=== PATIENT | female | born 1945 | race Caucasian/White ===

== ENCOUNTER → 2019-07-08 | Outpatient (CLI) | payer MEDICARE ==
[2017-09-14 14:35] VITALS: BP 109/56
[~2019-07-08] MED LIST: ASPI325T8 PO; Aspirin PO; DIPH1TAB PO; IBUP-1027 PO; LEVO125T5 PO; LEVO50TA5 PO; LISI-338 PO; METO25TA4 PO; NITR0.4T22 SL; NITR0.4T24 SL; PARO40TA3 PO; PARO40TA61 PO; PRAS10TA9 PO; PROC10TA57 PO; SIMV20TA18 PO; ZOLP10TA4 PO
--- NOTE | 2019-07-08 11:33 | CARD ---
MR#: [id number] Date of Study: 07/08/2019 Ordering Physician: MILAGROS THOMPSON, Referring Physician: MILAGROS THOMPSON, Tech: Roberta Meyers APPROVED REPORT EXAM: Two-dimensional and M-mode echocardiogram with Doppler and color Doppler. Other Information Quality : AverageHR: 73bpm Technically limited study due to smoking. INDICATION Cardiac Disease: CAD Prior VA RISK FACTORS Hypertension Hyperlipidemia Smoking 2D DIMENSIONS Left Atrium(2D)3.9 (1.6-4.0cm)IVSd1.0 (0.7-1.1cm) Aortic Root(2D)3.1 (2.0-3.7cm)LVDd5.7 (3.9-5.9cm) LVOT Diameter2.0 (1.8-2.4cm)PWd1.0 (0.7-1.1cm) LVDs3.2 (2.5-4.0cm)FS (%) 43.3 % SV116.9 mlLVEF(%)73.7 (>50%) Aortic Valve AoV Peak Rajan.140.6cm/sAoV VTI28.9cm AO Peak GR.7.9mmHgLVOT Peak Rajan.109.5cm/s LVOT VTI 22.50cmAO Mean GR.4mmHg KIANNA (VMAX)1.27ir8CJL (VTI)2.38cm2 Mitral Valve MV E Cvscvqrm11.4cm/sMV DECEL FHUF997hw MV A Ocenfjre33.9cm/sMV WFT73ze E/A Ratio1.0MVA (PHT)4.43cm2 TDI E/Lateral E'15.6E/Medial E'17.0 Pulmonary Valve PV Peak Dnkvrzzw24.4cm/sPV Peak Grad.2mmHg Tricuspid Valve TR P. Jbapgepm858hr/sTR Peak Gr.28mmHg Pulmonary Vein S1 Zludswoe63.1cm/sD2 Dzylydkw51.4cm/s PVa nqcvayeg595sxbh LEFT VENTRICLE The left ventricle is normal size. There is borderline concentric left ventricular hypertrophy. The l eft ventricular systolic function is normal. The Ejection Fraction is 55-60%. There is normal LV segm ental wall motion. Transmitral Doppler flow pattern is Grade II-pseudonormal filling dynamics. RIGHT VENTRICLE The right ventricle is normal size. There is normal right ventricular wall thickness. The right ventr icular systolic function is normal. ATRIA The left atrium size is normal. The right atrium size is normal. The interatrial septum is intact wit h no evidence for an atrial septal defect or patent foramen ovale as noted on 2-D or Doppler imaging. AORTIC VALVE The aortic valve is thickened but opens well. Doppler and Color Flow revealed no significant aortic r egurgitation. There is no significant aortic valvular stenosis. MITRAL VALVE The mitral valve is normal in structure and function. There is no evidence of mitral valve prolapse. There is no mitral valve stenosis. Doppler and Color-flow revealed trace to mild mitral regurgitation . TRICUSPID VALVE The tricuspid valve is normal in structure and function. Doppler and Color Flow revealed trace tricus pid regurgitation with an estimated PAP of 34 mmHg. There is no tricuspid valve stenosis. PULMONIC VALVE The pulmonic valve is not well visualized. Doppler and Color Flow revealed no pulmonic valvular regur gitation. GREAT VESSELS The aortic root is normal in size. The IVC is normal in size and collapses >50% with inspiration. PERICARDIAL EFFUSION There is no evidence of significant pericardial effusion. Critical Notification Critical Value: No <Conclusion> The left ventricular systolic function is normal. The Ejection Fraction is 55-60%. There is normal LV segmental wall motion. Trace to mild mitral regurgitation. Trace tricuspid regurgitation with an estimated PAP of 34 mmHg. There is no evidence of significant pericardial effusion. Signed by : Sourav Rincon, Electronically Approved : 07/08/2019 11:33:06
== END | disposition home or self-care (01) ==
LOC: ECHO 09:41
PROVIDERS: ATTEND Internal Medicine Cardiovascular Disease
DX: I34.0 Nonrheumatic mitral (valve) insufficiency (principal); I21.3 ST elevation (STEMI) myocardial infarction of unspecified site
CPT/HCPCS: 93306

== ENCOUNTER 2019-09-24 19:34 | Emergency (ER) | payer MEDICARE ==
[~2019-09-24] VITALS: Ht 165.1 cm; Wt 79.4 kg
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
[2019-09-24 19:58] LABS: BASO # 0.1 x10^3/uL (0.0-0.2); BASO % 1 % (0-3); EOS % 1 % (0-3); HEMATOCRIT 37.1 % (36.0-47.0); HEMOGLOBIN 12.4 g/dL (12.0-15.5); LYMPH # 0.9 x10^3/uL (1.0-4.8); LYMPH % 11 % (24-48); MEAN CORPUSCULAR HEMOGLOBIN 34 pg (25-35); MEAN CORPUSCULAR HGB CONC 34 g/dL (31-37); MEAN CORPUSCULAR VOLUME 101 fL (79-100); MONO % 12 % (0-9); NEUT # 6.1 x10^3/uL (1.8-7.7); NEUT % 76 % (31-73); PLATELET COUNT 199 x10^3/uL (140-400); RED BLOOD COUNT 3.68 x10^6/uL (3.50-5.40); RED CELL DISTRIBUTION WIDTH 14.4 % (11.5-14.5); WHITE BLOOD COUNT 8.1 x10^3/uL (4.0-11.0)
[2019-09-24 20:08] LABS: CALCIUM 8.9 mg/dL (8.5-10.1); CREATININE 1.1 mg/dL (0.6-1.0); GFR 48.6
[2019-09-24 20:13] LABS: ALBUMIN 3.8 g/dL (3.4-5.0); ALBUMIN/GLOBULIN RATIO 1.2 (1.0-1.7); TOTAL BILIRUBIN 0.3 mg/dL (0.2-1.0)
--- NOTE | 2019-09-24 20:22 | RAD ---
EXAM: AP View of the chest DATE: 09/24/2019 7:36 PM INDICATION: Shortness of breath COMPARISON: No Prior FINDINGS/ IMPRESSION: The heart is not enlarged. Mediastinal and hilar contours are normal. No focal parenchymal airspace opacity. Emphysematous changes are seen. Calcified granuloma left lung base. No pleural effusion or pneumothorax. Electronically signed by: Ayo Ware MD (09/24/2019 8:19 PM) [facility]
[2019-09-24 20:54] VITALS: BP 103/71
--- NOTE | 2019-09-25 16:14 | EKG ---
[facility] [address] [place] [address] Test Date: 2019-09-24 Test Time: 19:54:00 Pat Name: JAYCEE BUSCH Department: Room: Gender: F Retail Equipment Associate: : 1945 Requested By: KIMBERLY SRIVASTAVA Order Number: [id number] Reading MD: Measurements Intervals [place] Rate: 74 P: 56 MO: 150 QRS: 48 QRSD: 104 T: -41 QT: 368 QTc: 409 Interpretive Statements SINUS RHYTHM ATRIAL PREMATURE COMPLEX(ES) ST & T ABNORMALITY, CONSIDER INFEROLATERAL ISCHEMIA OR LEFT VENTRICULAR STRAIN ABNORMAL ECG RI6.01 No previous ECG available for comparison
== END 2019-09-24 21:07 | disposition home or self-care (01) ==
LOC: ER 19:34
DX: R06.02 Shortness of breath (principal); E78.5 Hyperlipidemia, unspecified; K21.9 Gastro-esophageal reflux disease without esophagitis; E78.00 Pure hypercholesterolemia, unspecified; I11.9 Hypertensive heart disease without heart failure; E03.9 Hypothyroidism, unspecified; Z95.5 Presence of coronary angioplasty implant and graft; X00.1XXA Exposure to smoke in uncontrolled fire in building or structure, initial encounter
CPT/HCPCS: 36415; 71045; 80053; 83880; 84484; 85025; 93005; 99285-25

== ENCOUNTER 2020-10-05 10:27 | Emergency (ER) | payer MEDICARE ==
[~2020-10-05] VITALS: Ht 165.1 cm; Wt 76.2 kg
[~2020-10-05 10:27] MED LIST changes: -LISI-338 PO; +LISI-517 PO
[2020-10-05 11:20] LABS: BASO # 0.1 x10^3/uL (0.0-0.2); BASO % 1 % (0-3); EOS % 1 % (0-3); HEMATOCRIT 38.1 % (36.0-47.0); HEMOGLOBIN 12.8 g/dL (12.0-15.5); LYMPH # 1.2 x10^3/uL (1.0-4.8); LYMPH % 13 % (24-48); MEAN CORPUSCULAR HEMOGLOBIN 34 pg (25-35); MEAN CORPUSCULAR HGB CONC 34 g/dL (31-37); MEAN CORPUSCULAR VOLUME 102 fL (79-100); MONO # 0.9 x10^3/uL (0.0-1.1); MONO % 10 % (0-9); NEUT # 6.9 x10^3/uL (1.8-7.7); NEUT % 76 % (31-73); PLATELET COUNT 234 x10^3/uL (140-400); RED BLOOD COUNT 3.72 x10^6/uL (3.50-5.40); RED CELL DISTRIBUTION WIDTH 14.1 % (11.5-14.5); WHITE BLOOD COUNT 9.1 x10^3/uL (4.0-11.0)
[2020-10-05 11:27] LABS: CALCIUM 9.1 mg/dL (8.5-10.1); CREATININE 1.2 mg/dL (0.6-1.0); GFR 43.8; POTASSIUM 3.7 mmol/L (3.5-5.1)
[2020-10-05 11:31] LABS: ALBUMIN 3.7 g/dL (3.4-5.0); MAGNESIUM 1.8 mg/dL (1.8-2.4); TOTAL BILIRUBIN 0.5 mg/dL (0.2-1.0); TOTAL PROTEIN 7.4 g/dL (6.4-8.2)
[2020-10-05 11:40] LABS: PROTHROMBIN TIME PATIENT 12.5 SEC (11.7-14.0)
--- NOTE | 2020-10-05 12:04 | RAD ---
EXAM: Chest, single view. HISTORY: Vision changes. Weakness. Fatigue. COMPARISON: 09/24/2019 FINDINGS: A frontal view of the chest is obtained. There is no infiltrate, pleural effusion or pneumo thorax. There is suspected bilateral infrahilar atelectasis or scarring. There is a stable cardiac si lhouette. There are calcified granulomas. Lucency along the left lateral thorax due to overlying soft tissue artifact. IMPRESSION: No acute pulmonary finding. Electronically signed by: Cristal Cam MD (10/05/2020 12:01 PM) [id number]
--- NOTE | 2020-10-05 12:06 | RAD ---
EXAM: Head CT without contrast. HISTORY: Vision changes. TECHNIQUE: Computed tomographic images of the head were obtained without contrast. *One or more of the following individualized dose reduction techniques were utilized for this examina tion: 1. Automated exposure control. 2. Adjustment of the mA and/or kV according to patient size. 3. Use of iterative reconstruction technique. COMPARISON: None. FINDINGS: There is no acute or subacute extra-axial or intraparenchymal hemorrhage. There is no mass effect or midline shift. There is no hydrocephalus. There are areas of decreased attenuation within the cerebral white matter, nonspecific and likely rel ated to chronic small vessel disease. There is cerebral volume loss. There is minimal fluid within mastoid air cells. There is evidence of lens surgery. The visualized paranasal sinuses are clear. There is no calvarial lesion. IMPRESSION: 1. Bilateral cerebral white matter changes, likely due to chronic small vessel disease. 2. Cerebral volume loss. 3. Note is made that MRI is more sensitive for acute infarction. Electronically signed by: Cristal Cam MD (10/05/2020 12:03 PM) [id number]
[2020-10-05 14:52] LABS: BILIRUBIN,URINE NEGATIVE (NEG); CLARITY,URINE CLEAR; COLOR,URINE YELLOW; NITRITE,URINE NEGATIVE (NEG); PH,URINE 5.5 (<5.0-8.0); PROTEIN,URINE NEGATIVE (NEG-TRACE); UROBILINOGEN,URINE 0.2 mg/dL (0.2 mg/dL)
[2020-10-05 14:59] LABS: BARBITURATES NEG (NEG); BENZODIAZEPINES NEG (NEG); CANNABINOIDS NEG (NEG); COCAINE NEG (NEG); METHADONE NEG (NEG); OPIATES NEG (NEG); PHENCYCLIDINE NEG (NEG)
[2020-10-05 15:02] VITALS: BP 180/80
[2020-10-05 15:06] LABS: AMPHETAMINE/METHAMPHETAMINE NEG (NEG)
[2020-10-05 15:09] LABS: BACTERIA,URINE MANY /HPF (0-FEW); RBC,URINE OCC /HPF (0-2)
--- NOTE | 2020-10-05 15:35 | PHYS DOC ---
Past Medical History Past Medical History: CAD, GERD, High Cholesterol, Heart Disease, Hypertension, Hypothyroid, Other Additional Past Medical Histor: INSOMNIA Past Surgical History: Hysterectomy, Other Additional Past Surgical Histo: CARDIAC STENTS X 5 Smoking Status: Current Every Day Smoker Additional Information: 1 ppd Alcohol Use: None Drug Use: None General Adult EDM: Chief Complaint: BLURRED/DOUBLE VISION HPI: HPI: Patient is a 75 year old female with history of hypertension, high cholesterol, CAD, among other illnesses who presents to the ED today complaining of double vision to the left eye that has been going on for several years. She states today she went to the eye doctor because she thought it was worse and the eye doctor sent her to the ED. She states the eye doctor told her there is nothing wrong with her eyes she needs to be checked to make sure she does not have any stroke. Patient appears to have trouble finding words. She states this has been going on for a month or so. She states she grinds her teeth and this has been going on for several months. She states she has been tired lately and not be able to keep up with her normal house routine but states this has been going on since 2017 after the and she lost interest in life. She states with Covid and the passing no one comes to her house so she stopped caring about the house. Denies any suicidal or homicidal ideations Review of Systems: Review of Systems: Constitutional: Reports generalized weakness. Denies fever or chills. [] Eyes: Reports double vision to the left eye denies change in visual acuity. [] HENT: Denies nasal congestion or sore throat. [] Respiratory: Denies cough or shortness of breath. [] Cardiovascular: Denies chest pain or edema. [] GI: Denies abdominal pain, nausea, vomiting, bloody stools or diarrhea. [] : Denies dysuria. [] Musculoskeletal: Denies back pain or joint pain. [] Integument: Denies rash. [] Neurologic: Reports trouble finding words. Denies headache, focal weakness or sensory changes. [] Psychiatric: Reports loss of interest in personal life Heart Score: Risk Factors: Risk Factors: DM, Current or recent (<one month) smoker, HTN, HLP, family hist ory of CAD, obesity. Risk Scores: Score 0 - 3: 2.5% MACE over next 6 weeks - Discharge Home Score 4 - 6: 20.3% MACE over next 6 weeks - Admit for Clinical Observation Score 7 - 10: 72.7% MACE over next 6 weeks - Early Invasive Strategies Allergies: Allergies: Allergies Coded Allergies Type Severity Reaction Last Updated Verified No Known Drug Allergies 10/05/20 No Physical Exam: PE: Constitutional: Well developed, well nourished, no acute distress, non-toxic appearance. [] HENT: Normocephalic, atraumatic, bilateral external ears normal, oropharynx moist, no oral exudates, nose normal. [] Eyes: PERRLA, EOMI, conjunctiva normal, no discharge. [] Neck: Normal range of motion, no tenderness, supple, no stridor. [] Cardiovascular:Heart rate regular rhythm, no murmur [] Lungs & Thorax: Bilateral breath sounds clear to auscultation [] Abdomen: Bowel sounds normal, soft, no tenderness, no masses, no pulsatile masses. [] Skin: Warm, dry, no erythema, no rash. [] Back: No tenderness, no CVA tenderness. [] Extremities: No tenderness, no cyanosis, no clubbing, ROM intact, no edema. [] Neurologic: Alert and oriented X 3, normal motor function, normal sensory function, no focal deficits noted. Cranial nerves II through XII intact Psychologic: Affect normal, judgement normal, mood normal. [] Current Patient Data: Labs: Laboratory Tests Test 10/05/20 10:50 10/05/20 11:01 10/05/20 14:43 White Blood Count 9.1 x10^3/uL (4.0-11.0) Red Blood Count 3.72 x10^6/uL (3.50-5.40) Hemoglobin 12.8 g/dL (12.0-15.5) Hematocrit 38.1 % (36.0-47.0) Mean Corpuscular Volume 102 fL (79-100) H Mean Corpuscular Hemoglobin 34 pg (25-35) Mean Corpuscular Hemoglobin Concent 34 g/dL (31-37) Red Cell Distribution Width 14.1 % (11.5-14.5) Platelet Count 234 x10^3/uL (140-400) Neutrophils (%) (Auto) 76 % (31-73) H Lymphocytes (%) (Auto) 13 % (24-48) L Monocytes (%) (Auto) 10 % (0-9) H Eosinophils (%) (Auto) 1 % (0-3) Basophils (%) (Auto) 1 % (0-3) Neutrophils # (Auto) 6.9 x10^3/uL (1.8-7.7) Lymphocytes # (Auto) 1.2 x10^3/uL (1.0-4.8) Monocytes # (Auto) 0.9 x10^3/uL (0.0-1.1) Eosinophils # (Auto) 0.0 x10^3/uL (0.0-0.7) Basophils # (Auto) 0.1 x10^3/uL (0.0-0.2) Prothrombin Time 12.5 SEC (11.7-14.0) Prothrombin Time INR 1.0 (0.8-1.1) Activated Partial Thromboplast Time 21 SEC (24-38) L Sodium Level 138 mmol/L (136-145) Potassium Level 3.7 mmol/L (3.5-5.1) Chloride Level 101 mmol/L (98-107) Carbon Dioxide Level 30 mmol/L (21-32) Anion Gap 7 (6-14) Blood Urea Nitrogen 15 mg/dL (7-20) Creatinine 1.2 mg/dL (0.6-1.0) H Estimated GFR (Cockcroft-Gault) 43.8 BUN/Creatinine Ratio 13 (6-20) Glucose Level 124 mg/dL (70-99) H Calcium Level 9.1 mg/dL (8.5-10.1) Magnesium Level 1.8 mg/dL (1.8-2.4) Total Bilirubin 0.5 mg/dL (0.2-1.0) Aspartate Amino Transferase (AST) 19 U/L (15-37) Alanine Aminotransferase (ALT) 19 U/L (14-59) Alkaline Phosphatase 70 U/L (46-116) Troponin I Quantitative < 0.017 ng/mL (0.000-0.055) KW-Hwd-O-Type Natriuretic Peptide 1289 pg/mL (0-449) H Total Protein 7.4 g/dL (6.4-8.2) Albumin 3.7 g/dL (3.4-5.0) Albumin/Globulin Ratio 1.0 (1.0-1.7) Thyroid Stimulating Hormone (TSH) 8.170 uIU/mL (0.358-3.74) H Glucose (Fingerstick) 124 mg/dL (70-99) H Urine Collection Type Unknown Urine Color Yellow Urine Clarity Clear Urine pH 5.5 (<5.0-8.0) Urine Specific [place] 1.010 (1.000-1.030) Urine Protein Negative mg/dL (NEG-TRACE) Urine Glucose (UA) Negative mg/dL (NEG) Urine Ketones (Stick) Negative mg/dL (NEG) Urine Blood Trace (NEG) Urine Nitrite Negative (NEG) Urine Bilirubin Negative (NEG) Urine Urobilinogen Dipstick 0.2 mg/dL (0.2 mg/dL) Urine Leukocyte Esterase Small (NEG) Urine RBC Occ /HPF (0-2) Urine WBC 11-20 /HPF (0-4) Urine Squamous Epithelial Cells Many /LPF Urine Bacteria Many /HPF (0-FEW) Urine Mucus Slight /LPF Urine Opiates Screen Neg (NEG) Urine Methadone Screen Neg (NEG) Urine Barbiturates Neg (NEG) Urine Phencyclidine Screen Neg (NEG) Urine Amphetamine/Methamphetamine Neg (NEG) Urine Benzodiazepines Screen Neg (NEG) Urine Cocaine Screen Neg (NEG) Urine Cannabinoids Screen Neg (NEG) Urine Ethyl Alcohol Neg (NEG) Laboratory Tests 10/05/20 10:50 Laboratory Tests 10/05/20 10:50 Vital Signs: Vital Signs Date Time Temp Pulse Resp B/P (MAP) Pulse Ox O2 Delivery O2 Flow Rate FiO2 10/05/20 15:02 60 180/80 (113) 95 Room Air 10/05/20 10:43 98.9 20 98.9 EKG: EKG: [] Radiology/Procedures: Radiology/Procedures: []PROCEDURE: CT HEAD WO CONTRAST EXAM: Head CT without contrast. HISTORY: Vision changes. TECHNIQUE: Computed tomographic images of the head were obtained without contrast. *One or more of the following individualized dose reduction techniques were utilized for this examination: 1. Automated exposure control. 2. Adjustment of the mA and/or kV according to patient size. 3. Use of iterative reconstruction technique. COMPARISON: None. FINDINGS: There is no acute or subacute extra-axial or intraparenchymal hemorrhage. There is no mass effect or midline shift. There is no hydrocephalus. There are areas of decreased attenuation within the cerebral white matter, nonspecific and likely related to chronic small vessel disease. There is cerebral volume loss. There is minimal fluid within mastoid air cells. There is evidence of lens surgery. The visualized paranasal sinuses are clear. There is no calvarial lesion. IMPRESSION: 1. Bilateral cerebral white matter changes, likely due to chronic small vessel disease. 2. Cerebral volume loss. 3. Note is made that MRI is more sensitive for acute infarction. Electronically signed by: Cristal De La Cruz MD (10/05/2020 12:03 PM) [id number] DICTATED and SIGNED BY: CRISTAL DE LA CRUZ MD DATE: 10/05/20 [id number] 0 PROCEDURE: PORTABLE CHEST 1V EXAM: Chest, single view. HISTORY: Vision changes. Weakness. Fatigue. COMPARISON: 09/24/2019 FINDINGS: A frontal view of the chest is obtained. There is no infiltrate, pleural effusion or pneumothorax. There is suspected bilateral infrahilar atelectasis or scarring. There is a stable cardiac silhouette. There are calcified granulomas. Lucency along the left lateral thorax due to overlying soft tissue artifact. IMPRESSION: No acute pulmonary finding. Electronically signed by: Cristal De La Cruz MD (10/05/2020 12:01 PM) [id number] DICTATED and SIGNED BY: CRISTAL DE LA CRUZ MD DATE: 10/05/20 [id number] 0 Course & Med Decision Making: Course & Med Decision Making Pertinent Labs and Imaging studies reviewed. (See chart for details) This is a 75-year-old female patient presenting to the ED today with multiple complaints. Patient reports double vision to the left eye for years. She went to the eye doctor and they sent her to the ED because her left eye did not have any problem. She is also complaining of trouble finding words for a month, she is also complaining of grinding her teeth for month. Patient stroke work-up is negative. Spoke to her about her results. She requested to be discharged and follow-up with her neurologist which we provided. She has good follow-up with her PCP. She was discharged home with return precautions provided to her and family member. Nabor Disclaimer: Nabor Disclaimer: This electronic medical record was generated, in whole or in part, using a voice recognition dictation system. Departure Departure Impression: Primary Impression: UTI (urinary tract infection) Qualified Codes: N39.0 - Urinary tract infection, site not specified Additional Impression: Monocular diplopia of left eye Disposition: 01 DC HOME SELF CARE/HOMELESS Condition: STABLE Referrals: OMARI DOWLING (PCP) follow up in the course of this week SUSAN LOO MD follow up as soon as possible Patient Instructions: Diplopia, Urinary Tract Infection Additional Instructions: Please take the prescribed antibiotics until completed and follow-up with the provided neurologist and primary care doctor as soon as possible Scripts Cephalexin (CEPHALEXIN) 500 Mg Tablet 1 TAB PO BID, #14 TAB Prov: SHAUNNA AVILA APRN 10/05/20 NIHSS Stroke Scale NIH Stroke Scale: NIH Stroke Scale Response (Comments) Value Level of Consciousness: 0 Alert/Responsive 0 LOC Questions: 0 Answers both correctly 0 Best Gaze: 0 Normal 0 Visual: 0 No visual loss 0 Facial Palsy: 0 Normal, symmetrical 0 Motor - Left Arm 0 No drift 0 Motor - Right Arm 0 No drift 0 Motor - Left Leg 0 No drift 0 Motor: Right Leg 0 No drift 0 Limb Ataxia: 0 Absent 0 Sensory: 0 No loss 0 Best Language: 0 Normal 0 Dysathria: 0 Normal 0 Extinction and Inattention: 0 Normal 0 Total 0 SHAUNNA AVILA APRN Oct 05, 2020 15:35
[2020-10-05] MEDS ORDERED: CEPH500T PO (15:37)
--- NOTE | 2020-10-08 02:34 | EKG ---
[facility] [address] [place] [address] Test Date: 2020-10-05 Test Time: 10:49:50 Pat Name: JAYCEE BUSCH Department: Room: Gender: F Airport Operations Specialist: : 1945 Requested By: SHAUNNA AVILA Order Number: [id number] Reading MD: Measurements Intervals [place] Rate: 69 P: 73 SD: 140 QRS: 54 QRSD: 102 T: -12 QT: 404 QTc: 434 Interpretive Statements SINUS RHYTHM ST & T ABNORMALITY, CONSIDER ANTEROLATERAL ISCHEMIA OR LEFT VENTRICULAR STRAIN INFEROLATERAL ISCHEMIA OR LEFT VENTRICULAR STRAIN ABNORMAL ECG RI6.01 No previous ECG available for comparison
== END 2020-10-05 15:23 | disposition home or self-care (01) ==
LOC: ER 10:27
DX: N39.0 Urinary tract infection, site not specified (principal); H53.2 Diplopia; K21.9 Gastro-esophageal reflux disease without esophagitis; E78.00 Pure hypercholesterolemia, unspecified; I11.9 Hypertensive heart disease without heart failure; E03.9 Hypothyroidism, unspecified; F17.200 Nicotine dependence, unspecified, uncomplicated; H53.9 Unspecified visual disturbance; Z90.710 Acquired absence of both cervix and uterus; Z98.890 Other specified postprocedural states; Z79.899 Other long term (current) drug therapy
CPT/HCPCS: 36415; 70450; 71045; 80053; 80307; 81001; 82962; 83735; 83880; 84443; 84484; 85025; 85610; 85730; 87086; 93005; 99285

== ENCOUNTER 2021-03-06 16:35 | Inpatient (IN) | payer MEDICARE ==
[~2021-03-06] VITALS: Ht 165.1 cm; Wt 77.4 kg
[~2021-03-06 16:35] MED LIST changes: +CEPH500T PO
--- NOTE | 2021-03-06 17:14 | EKG ---
[facility] [address] [place] [address] Test Date: 2021-03-06 Test Time: 16:40:22 Pat Name: JAYCEE BUSCH Department: Room: Gender: F Cnc Operator Programmer: : 1945 Requested By: DEYANIRA HARO Order Number: [id number] Reading MD: Measurements Intervals [place] Rate: 72 P: 53 NE: 140 QRS: 42 QRSD: 98 T: -144 QT: 388 QTc: 431 Interpretive Statements SINUS RHYTHM LVH WITH REPOLARIZATION ABNORMALITY QRS(T) CONTOUR ABNORMALITY CONSIDER ANTEROSEPTAL MYOCARDIAL DAMAGE ABNORMAL ECG RI6.01 No previous ECG available for comparison
[2021-03-06 17:15] LABS: BASO # 0.1 x10^3/uL (0.0-0.2); BASO % 1 % (0-3); EOS % 0 % (0-3); HEMATOCRIT 35.5 % (36.0-47.0); HEMOGLOBIN 12.1 g/dL (12.0-15.5); LYMPH # 0.9 x10^3/uL (1.0-4.8); LYMPH % 7 % (24-48); MEAN CORPUSCULAR HEMOGLOBIN 33 pg (25-35); MEAN CORPUSCULAR HGB CONC 34 g/dL (31-37); MEAN CORPUSCULAR VOLUME 96 fL (79-100); MONO # 1.5 x10^3/uL (0.0-1.1); MONO % 11 % (0-9); NEUT # 10.7 x10^3/uL (1.8-7.7); NEUT % 81 % (31-73); PLATELET COUNT 231 x10^3/uL (140-400); RED BLOOD COUNT 3.69 x10^6/uL (3.50-5.40); RED CELL DISTRIBUTION WIDTH 14.7 % (11.5-14.5); WHITE BLOOD COUNT 13.2 x10^3/uL (4.0-11.0)
--- NOTE | 2021-03-06 17:18 | PHYS DOC ---
Past Medical History Past Medical History: CAD, Depression, GERD, High Cholesterol, Heart Disease, Hypertension, Hypothyroid, CO, Other Additional Past Medical Histor: INSOMNIA Past Surgical History: Hysterectomy, Other Additional Past Surgical Histo: CARDIAC STENTS X 5 Smoking Status: Current Every Day Smoker Alcohol Use: None Drug Use: None General Adult EDM: Chief Complaint: MECHANICAL FALL HPI: HPI: 76 yo F PMH CAD on plavix, HTN and HLD presents to the ed bibems s/p accidental slip and fall, landing backwards on her back, now c/o left groin pain. Reports accidental fall with inability to bear weight on left leg. Reports covid vaccine UTD. Denies any LOC, prior head injury or ICH. Review of Systems: Review of Systems: Constitutional: Denies fever or chills. [] Eyes: Denies change in visual acuity. [] HENT: Denies nasal congestion or sore throat. [] Respiratory: Denies cough or shortness of breath. [] Cardiovascular: Denies chest pain or edema. [] GI: Denies abdominal pain, nausea, vomiting, : Denies dysuria or saddle anesthesia Musculoskeletal: Denies midline back pain or cva ttp Integument: Denies rash or diaphoresis Neurologic: Denies headache, neck pain, focal weakness or sensory changes. [] Endocrine: Denies polyuria or polydipsia. [] Lymphatic: Denies swollen glands. [] Psychiatric: Denies depression or anxiety. [] Heart Score: C/O Chest Pain: No Risk Factors: Risk Factors: DM, Current or recent (<one month) smoker, HTN, HLP, family history of CAD, obesity. Risk Scores: Score 0 - 3: 2.5% MACE over next 6 weeks - Discharge Home Score 4 - 6: 20.3% MACE over next 6 weeks - Admit for Clinical Observation Score 7 - 10: 72.7% MACE over next 6 weeks - Early Invasive Strategies Allergies: Allergies: Allergies Coded Allergies Type Severity Reaction Last Updated Verified No Known Drug Allergies 10/05/20 No Physical Exam: PE: Constitutional: Well developed, well nourished, handling pain well HENT: Normocephalic, atraumatic, Eyes: PERRLA, EOMI, conjunctiva normal, no discharge. Neck: Normal range of motion, supple, no midline neck pain Cardiovascular: S1/2 present, regular rhythm Lungs & Thorax: Speaking in full sentences, bilateral equal chest rise, no tachypnea or increased work of breathing Abdomen: soft, no tenderness, no pain w.left hip pressure (surprisingly), pain over left suprapubic region Skin: Warm, dry, no erythema, no rash. [] Back: No midline step offs or tenderness, no CVA tenderness. [] Extremities: no cyanosis, no lower extremity edema, shortened left leg Neurologic: Alert and oriented X 3, normal motor function, normal sensory function, no focal deficits noted. [] Psychologic: Affect normal, judgement normal, mood normal-calm Current Patient Data: Vital Signs: Vital Signs Date Time Temp Pulse Resp B/P (MAP) Pulse Ox O2 Delivery O2 Flow Rate FiO2 03/06/21 16:35 98.0 78 16 167/74 (105) 95 Room Air 98.0 EKG: EKG: Sinus rhythm at 72 bpm, no axis deviation, normal intervals, T wave inversion 1, 2, 3, aVL, V3 through V6, no ST elevations or ST depressions, no significant changes when compared to 09/24/2019 EKG Radiology/Procedures: Radiology/Procedures: [] IMAGING REPORT Signed PATIENT: JAYCEE BUSCH LACCOUNT: [id number] : 1945 LOCATION: ER AGE: 76 SEX: F EXAM STATUS: PRE ER ORD. PHYSICIAN: DEYANIRA HARO DO REASON: left hip pain PROCEDURE: HIP LEFT 2V WITH PELVIS Exam Date: 03/06/2021 4:49 PM XR BILATERAL HIP (WITH OR WITHOUT PELVIS) LEFT 2 VIEWS Indication: Reason: left hip pain / Spl. Instructions: / History: FINDINGS/ IMPRESSION: There is an acute intertrochanteric fracture of the left hip with moderate medial angulation of the shaft. No dislocation is seen. Moderate degenerative changes are noted in the left hip. Degenerative changes are noted in the lower lumbar spine, SI joints, pubic symphysis, and right hip. Vascular calcifications are noted. Electronically signed by: Cricket Ledesma MD (03/06/2021 5:23 PM) [facility] DICTATED and SIGNED BY: CRICKET LEDESMA MD DATE: 03/06/21 [id number] 0 IMAGING REPORT Signed PATIENT: JAYCEE BUSCH LACCOUNT: [id number] : 1945 LOCATION: [facility] AGE: 76 SEX: F EXAM STATUS: ADM IN ORD. PHYSICIAN: DEYANIRA HARO DO REASON: fall on plavix PROCEDURE: CT HEAD AND CERVICAL SPINE WO Exam Date: 03/06/2021 5:[address] CHEST_ABDOMEN_ AND PELVIS WITHOUT CONTRAST, CT HEAD AND C-SPINE WO Indication: Reason: fall on plavix / Spl. Instructions: / History: One or more of the following dose reduction techniques were utilized: *Automated exposure control (AEC) *Adjustment of mA and/or kV according to patient size *Use of iterative reconstruction technique *CT scan done according to ALARA, or ALARA/IMAGE GENTLY EXAMINATION: CT OF THE HEAD WITHOUT CONTRAST INDICATION: Trauma, head injury, headache; TECHNIQUE: Noncontrast helical axial CT images of the head were obtained. FINDINGS: The ventricles and sulci are prominent consistent with cerebral volume loss. Patchy ill-defined low attenuation areas in the subcortical and periventricular white matter bilaterally are consistent with microvascular disease. There is no evidence of acute intracranial hemorrhage, extra-axial collection, mass effect, midline shift, or acute territorial infarct. No lesion of the skull base or the calvarium is seen. The visualized paranasal sinuses, mastoid air cells, and orbits are normal in appearance. IMPRESSION: No evidence for acute intracranial abnormality. Volume loss and microvascular disease. EXAMINATION: CT OF THE CERVICAL SPINE WITHOUT CONTRAST Clinical Indication: Cervical spine pain after trauma Technique: Thin cut helical axial CT images through the cervical spine were obtained without contrast on a multi-detector CT scanner. Source data was then reconstructed into sagittal and coronal planes. 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 Alignment is maintained without spondylolisthesis. Vertebral body heights are maintained without acute fracture. Moderate multilevel degenerative changes are noted. No significant prevertebral soft tissue swelling is demonstrated. No severe central canal stenosis is seen. Impression: No evidence of acute cervical spine fracture or subluxation. EXAMINATION: CT CHEST without INTRAVENOUS CONTRAST CLINICAL INDICATION: Chest pain after trauma TECHNIQUE: Chest CT was performed without intravenous contrast. FINDINGS: The central airways are patent. There is no focal consolidation, pleural effusion or pneumothorax. Calcified granulomas are seen in the lungs. The visualized thyroid gland is within normal limits. No lymphadenopathy is seen. Calcified mediastinal and hilar lymph nodes are noted. The heart is normal in size without pericardial effusion. Coronary artery calcifications are noted. Aorta is normal in caliber with atherosclerotic calcifications. No aortic dissection is seen. Degenerative changes are seen in the spine. No acute fracture. IMPRESSION: No focal consolidation. No definite acute thoracic injury. EXAMINATION: CT ABDOMEN AND PELVIS WITHOUT IV CONTRAST CLINICAL INDICATION: Abdominal and pelvic pain after trauma; TECHNIQUE: CT abdomen pelvis was performed without intravenous contrast. FINDINGS: Calcified granulomas are seen in the liver and spleen. There is a 4.0 cm right adrenal nodule measuring -17 Hounsfield units consistent with an adrenal adenoma. Calcifications in the kidneys bilaterally are likely vascular. No hydronephrosis. The liver, gallbladder, spleen, pancreas, adrenal glands and kidneys are otherwise normal. Urinary bladder is normal in appearance. There is no bowel obstruction or inflammation. The appendix is normal. Moderate to severe atherosclerotic calcifications are seen. No lymphadenopathy or ascites is seen. Degenerative changes are seen in the spine. Acute comminuted intertrochanteric left femoral fracture is noted with displacement of the fracture fragments. IMPRESSION: No evidence of acute intra-abdominal pathology. Acute comminuted intertrochanteric left femoral fracture. Right adrenal adenoma. Electronically signed by: Cricket Ledesma MD (03/06/2021 6:12 PM) [facility] DICTATED and SIGNED BY: CRICKET LEDESMA MD DATE: 03/06/21 [id number] 0 Course & Med Decision Making: Course & Med Decision Making Pertinent Labs and Imaging studies reviewed. (See chart for details) Concern for accidental fall on antiplatelet medication with left intertrochanteric fracture. Will admit to medicine for further medical management with orthopedic consultation placed (Dr. Mccracken aware, full consult to follow-likely OR in am). Patient stable to admission and agrees with this plan. Covid test pending. I have spoken with the patient and/or caregivers. I have explained the patient's condition, diagnosis and treatment plan based on the information available to me at this time. I have answered the patient's and/or caregivers questions and answered any concerns. The patient and/or caregivers have as good an understanding of the patient's diagnosis, condition and treatment plan as can be expected at this point. The patient has been stabilized within the capability of the emergency department. The patient will be transported for further care and management or will be moved to an observation or inpatient service. I have communicated with the staff or medical practitioner taking over this patient's care. Nabor Disclaimer: Nabor Disclaimer: This electronic medical record was generated, in whole or in part, using a voice recognition dictation system. Departure Departure Impression: Primary Impression: Fall Additional Impression: Fracture, intertrochanteric, left femur Disposition: ADMITTED INPATIENT Admitting Physician: EVELIO (Dr. Zhong) Condition: STABLE Referrals: OMARI DOWLING (PCP) DEYANIRA HARO DO Mar 06, 2021 17:18
[2021-03-06 17:26] LABS: CALCIUM 9.2 mg/dL (8.5-10.1); CREATININE 1.6 mg/dL (0.6-1.0); GFR 31.3; POTASSIUM 4.2 mmol/L (3.5-5.1)
--- NOTE | 2021-03-06 17:26 | RAD ---
Exam Date: 03/06/2021 4:49 PM XR BILATERAL HIP (WITH OR WITHOUT PELVIS) LEFT 2 VIEWS Indication: Reason: left hip pain / Spl. Instructions: / History: FINDINGS/ IMPRESSION: There is an acute intertrochanteric fracture of the left hip with moderate medial angulation of the s haft. No dislocation is seen. Moderate degenerative changes are noted in the left hip. Degenerative changes are noted in the lower lumbar spine, SI joints, pubic symphysis, and right hip. Vascular calcifications are noted. Electronically signed by: Navneet Ledesma MD (03/06/2021 5:23 PM) [facility]
[2021-03-06 17:31] LABS: ALBUMIN 3.7 g/dL (3.4-5.0); ALBUMIN/GLOBULIN RATIO 1.2 (1.0-1.7); MAGNESIUM 1.9 mg/dL (1.8-2.4); TOTAL BILIRUBIN 0.4 mg/dL (0.2-1.0); TOTAL PROTEIN 6.9 g/dL (6.4-8.2)
[2021-03-06] MEDS ORDERED: HYDROmorphone 2 MG/ML VIAL ONE (17:59)
[2021-03-06] MEDS ORDERED: HYDROmorphone 2 MG/ML VIAL IVP ONE (18:00)
--- NOTE | 2021-03-06 18:14 | RAD ---
Exam Date: 03/06/2021 5:[address] CHEST_ABDOMEN_ AND PELVIS WITHOUT CONTRAST, CT HEAD AND C-SPINE WO Indication: Reason: fall on plavix / Spl. Instructions: / History: One or more of the following dose reduction techniques were utilized: *Automated exposure control (AEC) *Adjustment of mA and/or kV according to patient size *Use of iterative reconstruction technique *CT scan done according to ALARA, or ALARA/IMAGE GENTLY EXAMINATION: CT OF THE HEAD WITHOUT CONTRAST INDICATION: Trauma, head injury, headache; TECHNIQUE: Noncontrast helical axial CT images of the head were obtained. FINDINGS: The ventricles and sulci are prominent consistent with cerebral volume loss. Patchy ill-defined low attenuation areas in the subcortical and periventricular white matter bilaterally are consistent with microvascular disease. There is no evidence of acute intracranial hemorrhage, extra-axial collecti on, mass effect, midline shift, or acute territorial infarct. No lesion of the skull base or the calv arium is seen. The visualized paranasal sinuses, mastoid air cells, and orbits are normal in appearan ce. IMPRESSION: No evidence for acute intracranial abnormality. Volume loss and microvascular disease. EXAMINATION: CT OF THE CERVICAL SPINE WITHOUT CONTRAST Clinical Indication: Cervical spine pain after trauma Technique: Thin cut helical axial CT images through the cervical spine were obtained without contrast on a multi-detector CT scanner. Source data was then reconstructed into sagittal and coronal planes. 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 Alignment is maintained without spondylolisthesis. Vertebral body heights are maintained without acute fracture. Moderate multilevel degenerative change s are noted. No significant prevertebral soft tissue swelling is demonstrated. No severe central wellington l stenosis is seen. Impression: No evidence of acute cervical spine fracture or subluxation. EXAMINATION: CT CHEST without INTRAVENOUS CONTRAST CLINICAL INDICATION: Chest pain after trauma TECHNIQUE: Chest CT was performed without intravenous contrast. FINDINGS: The central airways are patent. There is no focal consolidation, pleural effusion or pneumothorax. C alcified granulomas are seen in the lungs. The visualized thyroid gland is within normal limits. No lymphadenopathy is seen. Calcified mediasti nal and hilar lymph nodes are noted. The heart is normal in size without pericardial effusion. Loyd ry artery calcifications are noted. Aorta is normal in caliber with atherosclerotic calcifications. No aortic dissection is seen. Degenerative changes are seen in the spine. No acute fracture. IMPRESSION: No focal consolidation. No definite acute thoracic injury. EXAMINATION: CT ABDOMEN AND PELVIS WITHOUT IV CONTRAST CLINICAL INDICATION: Abdominal and pelvic pain after trauma; TECHNIQUE: CT abdomen pelvis was performed without intravenous contrast. FINDINGS: Calcified granulomas are seen in the liver and spleen. There is a 4.0 cm right adrenal nodu le measuring -17 Hounsfield units consistent with an adrenal adenoma. Calcifications in the kidneys b ilaterally are likely vascular. No hydronephrosis. The liver, gallbladder, spleen, pancreas, adrenal glands and kidneys are otherwise normal. Urinary bladder is normal in appearance. There is no bowel obstruction or inflammation. The appendi x is normal. Moderate to severe atherosclerotic calcifications are seen. No lymphadenopathy or asci reny is seen. Degenerative changes are seen in the spine. Acute comminuted intertrochanteric left fem oral fracture is noted with displacement of the fracture fragments. IMPRESSION: No evidence of acute intra-abdominal pathology. Acute comminuted intertrochanteric left femoral fracture. Right adrenal adenoma. Electronically signed by: Navneet Ledesma MD (03/06/2021 6:12 PM) [facility]
[2021-03-06] MEDS ORDERED: DEXTROSE 50% 25 GM / 50ML DISP.SYRIN. IV PRN (19:45)
[2021-03-06] MEDS ORDERED: ONDANSETRON PF 4 MG/2 ML VIAL. IVP PRN (19:45)
[2021-03-06] MEDS ORDERED: SENNOSIDES 8.6 MG TABLET PO PRN (19:45)
[2021-03-06] MEDS ORDERED: MORPHINE SULFATE 2 MG/ML VIAL. IV PRN (19:45)
[2021-03-06] MEDS ORDERED: MORPHINE SULFATE 2 MG/ML VIAL. IVP PRN (19:45)
[2021-03-06] MEDS ORDERED: DOCUSATE SODIUM 100 MG CAPSULE. PO PRN (19:45)
[2021-03-06] MEDS ORDERED: ACETAMINOPHEN 325 MG TABLET. PO PRN (19:45)
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
[2021-03-06] MEDS: oxyCODONE/APAP 5/325 1 TAB TABLET PO PRN (21:19)
[2021-03-06 21:28] VITALS: BP 168/73
[2021-03-06] MEDS: IV NORMAL SALINE 1000ML BAG 1,000 ML IV SCH (23:43)
[2021-03-07] VITALS (12 sets, daily range): BP systolic 100–186; BP diastolic 52–79
[2021-03-07] MEDS: oxyCODONE/APAP 5/325 1 TAB TABLET PO PRN (04:17)
[2021-03-07] MEDS: IV NORMAL SALINE 1000ML BAG 1,000 ML IV SCH ×2 (05:45→14:58)
--- NOTE | 2021-03-07 06:33 | NUR ---
NS that was due at 0600 was not administered, patient not on floor from ED until approximately 2044, fluids started after arrival on floor
[2021-03-07 08:19] LABS: BASO % 1 % (0-3); EOS % 0 % (0-3); HEMATOCRIT 33.4 % (36.0-47.0); HEMOGLOBIN 11.7 g/dL (12.0-15.5); LYMPH % 12 % (24-48); MEAN CORPUSCULAR HEMOGLOBIN 34 pg (25-35); MEAN CORPUSCULAR HGB CONC 35 g/dL (31-37); MEAN CORPUSCULAR VOLUME 97 fL (79-100); MONO # 1.6 x10^3/uL (0.0-1.1); MONO % 18 % (0-9); NEUT % 69 % (31-73); PLATELET COUNT 183 x10^3/uL (140-400); RED BLOOD COUNT 3.43 x10^6/uL (3.50-5.40); RED CELL DISTRIBUTION WIDTH 14.9 % (11.5-14.5); WHITE BLOOD COUNT 8.7 x10^3/uL (4.0-11.0)
[2021-03-07 08:51] LABS: CREATININE 1.2 mg/dL (0.6-1.0); GFR 43.7; PHOSPHORUS 4.2 mg/dL (2.6-4.7); POTASSIUM 4.3 mmol/L (3.5-5.1)
[2021-03-07 09:22] LABS: % BANDS 4 % (0-9); % LYMPHS 11 % (24-48); % MONOS 14 % (0-10); % SEGS 71 % (35-66); PLT ESTIMATE ADEQUATE (ADEQUATE)
[2021-03-07] MEDS ORDERED: MORPHINE SULFATE 2 MG/ML VIAL. IVP PRN ×2 (10:15→14:00)
[2021-03-07] MEDS ORDERED: PROCHLORPERAZINE 10 MG/2 ML VIAL. IVP PRN (10:15)
[2021-03-07] MEDS ORDERED: fentaNYL PF VIAL 100 MCG/2 ML VIAL IVP PRN ×2 (10:15)
[2021-03-07] MEDS ORDERED: HYDROmorphone 2 MG/ML VIAL IVP PRN (10:15)
[2021-03-07] MEDS ORDERED: IV RINGERS,LACTATED 1000ML 1,000 ML IV SCH (10:15)
[2021-03-07] MEDS ORDERED: LIDOCAINE 2% PF 5 ML VIAL. ONE (11:09)
[2021-03-07] MEDS ORDERED: PROPOFOL 10 MG/ML (20ML) VIAL. IV ONE (11:09)
[2021-03-07] MEDS ORDERED: ONDANSETRON PF 4 MG/2 ML VIAL. ONE (11:10)
[2021-03-07] MEDS ORDERED: DEXAMETHASONE SOD PHOS 4 MG/ML VIAL ONE (11:10)
[2021-03-07] MEDS ORDERED: BUPIVACAINE-EPI 0.25% 30 ML VIAL KIT. ONE (12:41)
[2021-03-07] MEDS ORDERED: fentaNYL PF VIAL 100 MCG/2 ML VIAL ONE (13:12)
--- NOTE | 2021-03-07 13:32 | PDOC ---
[employer] PROGRESS NOTE Date of Service DOS: DATE: 03/07/21 TIME: 13:31 Chief Complaint Chief Complaint Acute mechanical fall Acute left hip fracture KATHLEEN due to vasomotor nephropathy Tobacco misuse Reactive leukocytosis, possibly due to trauma Adrenal adenoma History of Present Illness History of Present Illness 03/07/2021 Patient seen and examined in the preop area Discussed with RN Chart review Vitals/I&O Vitals/I&O: Vital Signs Date Time Temp Pulse Resp B/P (MAP) Pulse Ox O2 Delivery O2 Flow Rate FiO2 03/07/21 10:45 98.7 72 16 163/80 91 Nasal Cannula 98.7 03/07/21 08:00 2.0 I & O 03/06/21 03/06/21 03/07/21 15:00 23:00 07:00 Output Total 100 ml Balance -100 ml Physical Exam General: Alert, Oriented X3, Cooperative Heart: Regular rate Lungs: Clear Abdomen: Normal bowel sounds Extremities: Other (Right leg externally rotated) Skin: No breakdown Labs Labs: Laboratory Tests Test 03/06/21 17:05 03/06/21 18:08 03/07/21 07:00 White Blood Count 13.2 x10^3/uL (4.0-11.0) 8.7 x10^3/uL (4.0-11.0) Red Blood Count 3.69 x10^6/uL (3.50-5.40) 3.43 x10^6/uL (3.50-5.40) Hemoglobin 12.1 g/dL (12.0-15.5) 11.7 g/dL (12.0-15.5) Hematocrit 35.5 % (36.0-47.0) 33.4 % (36.0-47.0) Mean Corpuscular Volume 96 fL (79-100) 97 fL (79-100) Mean Corpuscular Hemoglobin 33 pg (25-35) 34 pg (25-35) Mean Corpuscular Hemoglobin Concent 34 g/dL (31-37) 35 g/dL (31-37) Red Cell Distribution Width 14.7 % (11.5-14.5) 14.9 % (11.5-14.5) Platelet Count 231 x10^3/uL (140-400) 183 x10^3/uL (140-400) Neutrophils (%) (Auto) 81 % (31-73) 69 % (31-73) Lymphocytes (%) (Auto) 7 % (24-48) 12 % (24-48) Monocytes (%) (Auto) 11 % (0-9) 18 % (0-9) Eosinophils (%) (Auto) 0 % (0-3) 0 % (0-3) Basophils (%) (Auto) 1 % (0-3) 1 % (0-3) Neutrophils # (Auto) 10.7 x10^3/uL (1.8-7.7) 6.0 x10^3/uL (1.8-7.7) Lymphocytes # (Auto) 0.9 x10^3/uL (1.0-4.8) 1.0 x10^3/uL (1.0-4.8) Monocytes # (Auto) 1.5 x10^3/uL (0.0-1.1) 1.6 x10^3/uL (0.0-1.1) Eosinophils # (Auto) 0.0 x10^3/uL (0.0-0.7) 0.0 x10^3/uL (0.0-0.7) Basophils # (Auto) 0.1 x10^3/uL (0.0-0.2) 0.0 x10^3/uL (0.0-0.2) Sodium Level 141 mmol/L (136-145) 142 mmol/L (136-145) Potassium Level 4.2 mmol/L (3.5-5.1) 4.3 mmol/L (3.5-5.1) Chloride Level 102 mmol/L (98-107) 103 mmol/L (98-107) Carbon Dioxide Level 32 mmol/L (21-32) 29 mmol/L (21-32) Anion Gap 7 (6-14) 10 (6-14) Blood Urea Nitrogen 27 mg/dL (7-20) 24 mg/dL (7-20) Creatinine 1.6 mg/dL (0.6-1.0) 1.2 mg/dL (0.6-1.0) Estimated GFR (Cockcroft-Gault) 31.3 43.7 BUN/Creatinine Ratio 17 (6-20) Glucose Level 109 mg/dL (70-99) 116 mg/dL (70-99) Calcium Level 9.2 mg/dL (8.5-10.1) 9.0 mg/dL (8.5-10.1) Magnesium Level 1.9 mg/dL (1.8-2.4) 2.0 mg/dL (1.8-2.4) Total Bilirubin 0.4 mg/dL (0.2-1.0) Aspartate Amino Transf (AST/SGOT) 19 U/L (15-37) Alanine Aminotransferase (ALT/SGPT) 21 U/L (14-59) Alkaline Phosphatase 62 U/L (46-116) Troponin I Quantitative < 0.017 ng/mL (0.000-0.055) < 0.017 ng/mL (0.000-0.055) Total Protein 6.9 g/dL (6.4-8.2) Albumin 3.7 g/dL (3.4-5.0) Albumin/Globulin Ratio 1.2 (1.0-1.7) Lipase 102 U/L (73-393) SARS-CoV-2 RNA (JARVIS) Negative (Negative) SARS-CoV-2 Antigen (Rapid) Negative (NEGATIVE) Segmented Neutrophils % 71 % (35-66) Band Neutrophils % 4 % (0-9) Lymphocytes % 11 % (24-48) Monocytes % 14 % (0-10) Platelet Estimate Adequate (ADEQUATE) Phosphorus Level 4.2 mg/dL (2.6-4.7) Assessment and Plan Assessmemt and Plan Problems Medical Problems: (1) Fall Status: Acute (2) Femur fracture, left Status: Acute (3) Fracture, intertrochanteric, left femur Status: Acute Acute mechanical fall Acute left hip fracture KATHLEEN due to vasomotor nephropathy Tobacco misuse Reactive leukocytosis, possibly due to trauma Adrenal adenoma Plan Going for ORIF today Postoperatively she will need aggressive PT and OT halfway evaluation Wound care As needed pain meds Home meds DVT prophylaxis Full code Suspect she will need alf in a few days Comment Review of Relevant I have reviewed the following items darrell (where applicable) has been applied. Medications: Current Medications Medications (Trade) Dose Ordered Sig/Nazia Route PRN Reason Start Time Stop Time Status Last Admin Dose Admin Hydromorphone HCl (Dilaudid) 1 mg 1X ONCE IVP 03/06/21 18:00 03/06/21 18:04 DC 03/06/21 18:04 Sodium Chloride 1,000 ml @ 100 mls/hr Q10H IV 03/06/21 19:45 03/06/21 23:43 Oxycodone/ Acetaminophen (Percocet 5/325) 1 tab PRN Q4HRS PRN PO MILD PAIN, 1ST CHOICE 03/06/21 19:45 03/07/21 04:17 Bupivacaine HCl/ Epinephrine Bitart (Sensorcain-Epi 0.25% Kit) 30 ml STK-MED ONCE .ROUTE 03/07/21 12:41 03/07/21 12:41 DC 03/07/21 13:03 Justifications for Admission Other Justification Left hip fracture BALJIT LUO III DO Mar 07, 2021 13:32
[2021-03-07] MEDS ORDERED: SEVOFLURANE 61 TO 120 MINUTES. IH ONE (13:40)
[2021-03-07] MEDS ORDERED: PHENYLEPHRINE 10 MG/ML VIAL. ONE (13:44)
[2021-03-07] MEDS ORDERED: DEXTROSE 50% 25 GM / 50ML DISP.SYRIN. IV PRN (14:00)
[2021-03-07] MEDS ORDERED: HYDROcodone/APAP 7.5/325MG 1 TAB TABLET PO PRN (14:00)
[2021-03-07] MEDS ORDERED: POLYETHYLENE GLYCOL 3350 17 GM PACKET. PO PRN (14:00)
[2021-03-07] MEDS ORDERED: oxyCODONE IR 5 MG TABLET PO PRN (14:00)
[2021-03-07] MEDS: NICOTINE 21MG PATCH. TD SCH (16:35)
[2021-03-07] MEDS: ONDANSETRON PF 4 MG/2 ML VIAL. IVP PRN (17:58)
[2021-03-07 19:33] LABS: HEMATOCRIT 29.5 % (36.0-47.0); HEMOGLOBIN 9.6 g/dL (12.0-15.5)
[2021-03-07 19:43] LABS: PROTHROMBIN TIME PATIENT 13.2 SEC (11.7-14.0)
--- NOTE | 2021-03-07 19:45 | NUR ---
Patient was found on the bed side commode, diaphoretic. Rapid response was called. Patient was moved to bed, vitals taken, upon assessment patient stated " I think I took too many of those pills." Patient asked what pills she was referring to. Patient stated "pills from my purse." RN looked in purse for pills, 2 containers found of medication "diphen/atrop 2.5mg". One container was empty, another has 173 pills. Both containers state quantity of 200 pills. Patient stated she took "only 5 pills". patient stated she was not trying to harm herself. Pharmacy was called and information received on possible overdose. Dr. sweeney, orders received.
[2021-03-07] MEDS ORDERED: NALOXONE 0.4 MG/ML VIAL. IV ONE (20:15)
--- NOTE | 2021-03-07 21:33 | PDOC4 ---
OPERATIVE NOTE: DATE OF PROCEDURE: March 07, 2021 PROCEDURE: Left hip cephalomedullary nailing. PREOPERATIVE DIAGNOSIS: Left intertrochanteric hip fracture. POSTOPERATIVE DIAGNOSIS: Same SURGEON: Rey Mckenzie DO SHIP KEEPER: None EBL: <100cc SPECIMEN: None ANESTHESIA: General POSITION: Supine on the hip fracture table. COMPLICATIONS: None. IMPLANT SPECIFICATIONS: A Synthes titanium fixation nail was used with an 10 mm x 130-degree x 360 mm nail with a 95 mm helical blade a 5 mm x 46 mm distal locking screw. DESCRIPTION OF PROCEDURE: The patient was seen in the preoperative holding area. The site was marked. Consent was verified. We reviewed the risks, benefits, possible complications, and rationale behind the surgery. The patient received preoperative antibiotics and was wheeled back to the operating room. Once in the operating room, the department of anesthesia administered antibiotics as well as general anesthetic and maintained control of the airway. Then positioned on the fracture table in the usual fashion. Time out was observed. A closed reduction was performed of the hip with traction, and internal rotation. Sterile prep and drape was performed of the hip in the usual fashion. Fluoroscopy was used to aid in the surgery. At this point, a 6 cm incision was made over the lateral aspect of the hip just proximal to the greate r trochanter. Soft dissection was carried out sharply down to the tip of the greater trochanter. A pin was placed in the tip of the greater trochanter and advanced into the femoral canal. It was then overreamed with the entry reamer. The nail was then selected and placed into the femur with the insertion guide. Its position was confirmed on AP and lateral fluoroscopy. At this point, with the outrigger and aiming arm as a guide, a 6 cm incision was made distally along the shaft of the femur. Soft tissue dissection was carried out sharply down to the lateral cortex of the bone. The aiming arm was advanced to the lateral cortex, and a guide pin was placed up through the femoral neck and into the femoral head. Its position was confirmed on AP and lateral fluoroscopy, and its length was measured. The cortical reamer followed by the conical reamer were used. Once the length of the guide pin was established and overreamed, the final head screw was impacted and fully seated. The head screw was then locked, and compression was placed through the device. At this point, the guide was then used for a distal locking screw, and this was placed using AP and lateral fluoroscopy as an aid. The insertion guide was then removed, and final pictures were taken. Reduction was acceptable. Copious irrigation was run through the wounds, and they were suctioned dry. Layered closure was performed. A large bulky dressing was applied, and anesthesia was reversed. The patient was transferred to postop in apparent stable condition. DISPOSITION: The patient will remain in the hospital and begin on physical therapy protocol. PROGNOSIS: Guarded secondary to advance age and overall medical status, as well as known comorbidities with hip fractures in the elderly. REY MCKENZIE DO Mar 07, 2021 9:33 pm
[2021-03-07] MEDS: RIVAROXABAN 10 MG TABLET. PO SCH (21:42)
[2021-03-07] MEDS: ceFAZolin SODIUM IV Push 1 GM VIAL. IVP SCH (21:43)
--- NOTE | 2021-03-07 22:15 | NUR ---
RN spoke w/PAT team sales representative [employer] after assessment- has determined patient is not an acute threat to self. 1:1 order to be discontinued. Narcan administered as ordered. Patient alert & oriented at this time. Dr. Lee has requested patient to be on surveillance monitor due to Lomotil re: atropine component of medication- specifically requested patient to be transferred to 2nd floor. RN dye house supervisor contacted.
[2021-03-08] MEDS: IV NORMAL SALINE 1000ML BAG 1,000 ML IV SCH ×3 (01:45→21:24)
[2021-03-08 02:54] VITALS: BP 100/44
[2021-03-08] MEDS: ceFAZolin SODIUM IV Push 1 GM VIAL. IVP SCH ×2 (02:58→08:44)
[2021-03-08] MEDS ORDERED: MAGNESIUM HYDROXIDE 2,400 MG/30 ML ORAL.SUSP. PO PRN (06:00)
[2021-03-08 07:00] VITALS: BP 138/59
[2021-03-08] MEDS: NICOTINE 21MG PATCH. TD SCH (08:29)
[2021-03-08] MEDS: SENNOSIDES/DOCUSATE 8.6/50MG TABLET. PO SCH (08:30)
[2021-03-08] MEDS: CHOLECALCIFEROL (VITAMIN D3) 1,000 UNIT TABLET PO SCH (08:30)
[2021-03-08] MEDS: MULTIVITAMIN with MINERAL TABLET. PO SCH (08:30)
[2021-03-08 10:53] LABS: HEMATOCRIT 26.1 % (36.0-47.0); HEMOGLOBIN 8.6 g/dL (12.0-15.5)
[2021-03-08 11:00] VITALS: BP 112/46
--- NOTE | 2021-03-08 14:07 | NUR ---
SS following for discharge planning. SS reviewed pt chart and discussed with pt RN. Pt is from home and is currently requiring oxygen at three liters nasal canula. COVID19 negative. Pt had hip surgery on 03/07/2021. PAT team met with pt and cleared pt from there standpoint and provided resources. PT/OT recommended [facility]cf unit. SS met with pt and contacted pt's daughter to discuss discharge planning and [facility] unit. Pt and pt's daughter agreeable to chcf unit. Pt's daughter requested referral to [facility], ; fax [phone]. SS phoned and faxed referral as requested. SS will continue to follow for discharge planning.
[2021-03-08 15:00] VITALS: BP 122/47
--- NOTE | 2021-03-08 15:17 | PDOC ---
Provider Note Date of Service: DATE: 03/08/21 TIME: 15:15 Provider Note Patient seen and evaluated today. She is doing well and sitting up in bed talking with family. Vital signs are stable patient is afebrile. Hip dressing is clean dry and intact. Neurocirculatory status is intact distally. Diagnosis: Status post intramedullary nailing left hip on March 07, 2021 Weightbearing as tolerated Continue to progress activity within pain tolerance Restrictions discussed Xarelto for 30 days Ortho stable for discharge whenever medically stable. Justifications for Admission Other Justification Left hip fracture REY KELLY DO Mar 08, 2021 15:17
--- NOTE | 2021-03-08 15:19 | DISCH ---
REY KELLY DO 03/08/21 1519: DISCHARGE INSTRUCTIONS Activity After Discharge Activity Instructions for Disc: Activity as tolerated, Avoid exertion Lifting Instructions after Dis: No heavy lifting Driving Instructions after Dis: No driving for 2 weeks Weight Bearing Status after Di: Full weight bearing Diet after Discharge Diet after Discharge: Cardiac Additional Diet Restrictions: follow preop diet Diet Texture: Regular Liquid Texture: Thin Liquid Wound Incision Care Wound/Incision Care: Ice to area for comfort, Change dressing, May get incision wet, Reinforce dressing PRN Other wound/incision instructi: If italia are present follow-up in 2 weeks for staple removal Wound Care Equipment: Dressings Checks after Discharge Checks after discharge: Check blood press - daily Contacting the DR. after DC Call your doctor for: Concerns you may have Follow-Up Follow up with: Please call [facility] office for follow up appt in wee. phone # [phone] Treatment/Equipment after DC Adaptive Equipment Issued: None NETTIE IVY MD 03/11/21 1137: DISCHARGE INSTRUCTIONS Condition on Discharge Condition on Discharge: Stable Activity After Discharge Activity Instructions for Disc: Activity as tolerated, Avoid exertion REY KELLY DO Mar 08, 2021 15:19 NETTIE IVY MD Mar 11, 2021 11:37
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
[2021-03-08] MEDS ORDERED: BISACODYL 10 MG SUPP.RECT. PR PRN (16:00)
[2021-03-08] MEDS: RIVAROXABAN 10 MG TABLET. PO SCH (16:47)
[2021-03-08 19:38] VITALS: BP 152/70
[2021-03-08 23:13] VITALS: BP 164/74
[2021-03-09] MEDS: ONDANSETRON PF 4 MG/2 ML VIAL. IVP PRN (03:03)
[2021-03-09 03:51] VITALS: BP 176/78
[2021-03-09] MEDS: IV NORMAL SALINE 1000ML BAG 1,000 ML IV SCH ×2 (06:58→17:07)
[2021-03-09 07:00] VITALS: BP 155/62
[2021-03-09] MEDS: CHOLECALCIFEROL (VITAMIN D3) 1,000 UNIT TABLET PO SCH (08:05)
[2021-03-09] MEDS: SENNOSIDES/DOCUSATE 8.6/50MG TABLET. PO SCH (08:05)
[2021-03-09] MEDS: MULTIVITAMIN with MINERAL TABLET. PO SCH (08:05)
[2021-03-09] MEDS: NICOTINE 21MG PATCH. TD SCH (08:06)
[2021-03-09 11:00] VITALS: BP 137/56
--- NOTE | 2021-03-09 11:26 | NUR ---
SW following. Discussed with RN, pt accepted at [facility], they can take pt tomorrow. Pt on 3L, GI soft diet, COVID-19 negative. SW will continue to follow.
[2021-03-09] MEDS: DIPHENOXYLATE/ATROPINE TABLET. PO PRN ×2 (11:45→17:04)
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
[2021-03-09 14:30] LABS: HEMATOCRIT 21.5 % (36.0-47.0); HEMOGLOBIN 7.1 g/dL (12.0-15.5); RED BLOOD COUNT 2.17 x10^6/uL (3.50-5.40); RED CELL DISTRIBUTION WIDTH 15.4 % (11.5-14.5); WHITE BLOOD COUNT 11.1 x10^3/uL (4.0-11.0)
[2021-03-09 15:00] VITALS: BP 149/69
--- NOTE | 2021-03-09 16:14 | NUR ---
Paged Dr. Ch regarding pt home meds and orthostatic hypotension. Received orders to restart some home meds. Dr. Ch stated he was aware of orthostatic hypotension and he discussed options with the patient and will readdress tomorrow.
[2021-03-09] MEDS: HYDROcodone/APAP 7.5/325MG 1 TAB TABLET PO PRN ×2 (17:05→22:28)
[2021-03-09] MEDS: RIVAROXABAN 10 MG TABLET. PO SCH (17:05)
[2021-03-09 19:00] VITALS: BP 141/60
[2021-03-09] MEDS: SIMVASTATIN 20 MG TABLET PO SCH (21:13)
[2021-03-09 22:58] VITALS: BP 172/69
[2021-03-10] VITALS (11 sets, daily range): BP systolic 134–197; BP diastolic 63–86
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
[2021-03-10] MEDS ORDERED: LOPERAMIDE 2 MG CAPSULE PO PRN (07:45)
[2021-03-10 07:46] LABS: RED BLOOD COUNT 1.94 x10^6/uL (3.50-5.40); RED CELL DISTRIBUTION WIDTH 15.3 % (11.5-14.5); WHITE BLOOD COUNT 8.8 x10^3/uL (4.0-11.0)
[2021-03-10 08:15] LABS: HEMATOCRIT 19.2 % (36.0-47.0); HEMOGLOBIN 6.4 g/dL (12.0-15.5)
[2021-03-10] MEDS: SENNOSIDES/DOCUSATE 8.6/50MG TABLET. PO SCH (08:52)
[2021-03-10] MEDS: LEVOTHYROXINE 50 MCG TABLET PO SCH (08:52)
[2021-03-10] MEDS: IV NORMAL SALINE 1000ML BAG 1,000 ML IV SCH (08:52)
[2021-03-10] MEDS: CHOLECALCIFEROL (VITAMIN D3) 1,000 UNIT TABLET PO SCH (08:52)
[2021-03-10] MEDS: MULTIVITAMIN with MINERAL TABLET. PO SCH (08:52)
[2021-03-10] MEDS: NICOTINE 21MG PATCH. TD SCH (08:53)
[2021-03-10] MEDS: oxyCODONE/APAP 5/325 1 TAB TABLET PO PRN (08:55)
[2021-03-10 09:10] LABS: ALBUMIN 2.7 g/dL (3.4-5.0); ALBUMIN/GLOBULIN RATIO 0.9 (1.0-1.7); GFR 53.9; POTASSIUM 4.2 mmol/L (3.5-5.1); TOTAL BILIRUBIN 0.4 mg/dL (0.2-1.0); TOTAL PROTEIN 5.6 g/dL (6.4-8.2)
--- NOTE | 2021-03-10 09:53 | NUR ---
SW following. Discussed with RN, pt from home, 2L, GI soft, COVID-19 negative (has had COVID vaccine). Pt accepted at [facility] for SNF -may not be able to go today as pt needs blood transfusion. SW awaiting confirmation. SW will continue to follow.
[2021-03-10] MEDS: METOPROLOL TART IMMED RELEASE 25 MG TABLET. PO SCH ×2 (10:16→20:51)
[2021-03-10] MEDS: RIVAROXABAN 10 MG TABLET. PO SCH (17:00)
[2021-03-10] MEDS: SIMVASTATIN 20 MG TABLET PO SCH (20:50)
[2021-03-10] MEDS: traMADol 50 MG TABLET PO PRN (20:50)
[2021-03-10] MEDS ORDERED: PSYLLIUM HUSK (SUGAR FREE) 1 PKT PACKET PO SCH (21:00)
[2021-03-11] MEDS ORDERED: METOPROLOL TART IMMED RELEASE 25 MG TABLET. PO ONE
[2021-03-11 03:00] VITALS: BP 204/96
[2021-03-11] MEDS: LEVOTHYROXINE 50 MCG TABLET PO SCH (06:09)
[2021-03-11 07:00] VITALS: BP 131/74
[2021-03-11 08:46] LABS: BASO # 0.1 x10^3/uL (0.0-0.2); BASO % 1 % (0-3); EOS % 1 % (0-3); HEMATOCRIT 24.7 % (36.0-47.0); HEMOGLOBIN 8.4 g/dL (12.0-15.5); LYMPH # 1.3 x10^3/uL (1.0-4.8); LYMPH % 15 % (24-48); MEAN CORPUSCULAR HEMOGLOBIN 33 pg (25-35); MEAN CORPUSCULAR HGB CONC 34 g/dL (31-37); MEAN CORPUSCULAR VOLUME 97 fL (79-100); MONO # 1.3 x10^3/uL (0.0-1.1); MONO % 15 % (0-9); NEUT # 5.9 x10^3/uL (1.8-7.7); NEUT % 68 % (31-73); PLATELET COUNT 191 x10^3/uL (140-400); RED BLOOD COUNT 2.55 x10^6/uL (3.50-5.40); RED CELL DISTRIBUTION WIDTH 15.6 % (11.5-14.5); WHITE BLOOD COUNT 8.6 x10^3/uL (4.0-11.0)
[2021-03-11] MEDS ORDERED: METOPROLOL TART IMMED RELEASE 25 MG TABLET. PO SCH (09:00)
[2021-03-11] MEDS: SENNOSIDES/DOCUSATE 8.6/50MG TABLET. PO SCH (09:00)
[2021-03-11] MEDS: MULTIVITAMIN with MINERAL TABLET. PO SCH (09:28)
[2021-03-11] MEDS: CHOLECALCIFEROL (VITAMIN D3) 1,000 UNIT TABLET PO SCH (09:28)
[2021-03-11] MEDS: NICOTINE 21MG PATCH. TD SCH (09:29)
[2021-03-11] MEDS: traMADol 50 MG TABLET PO PRN (09:29)
--- NOTE | 2021-03-11 10:10 | NUR ---
GIACOMO following. Discussed with RN, pt accepted at [facility] SNF. Dr. Borrero possibly discharging pt today. GIACOMO awaiting confirmation of discharge. Gave [facility] a heads up. GIACOMO will continue to follow. Addendum: 03/11/21 at 1148 by PAU GOODEN Discharge orders faxed to [facility]. Transportation arranged with [facility] transportation for [facility]. RN notified. Addendum: 03/11/21 at 1221 by PAU GOODEN Pt and daughter notified.
[2021-03-11 11:00] VITALS: BP 145/55
[2021-03-11] MEDS ORDERED: RIVA10TA PO (11:36)
--- NOTE | 2021-03-11 11:38 | SNU/HH DC ---
DISCHARGE ORDERS DISCHARGE INFORMATION: DISCHARGE DATE: Mar 11, 2021 FINAL DIAGNOSIS Acute mechanical fall Acute left hip fracture KATHLEEN due to vasomotor nephropathy Tobacco misuse Reactive leukocytosis, possibly due to trauma Adrenal adenoma history of CAD, hypertension, dyslipidemia, depression Problems Medical Problems: (1) Fall Status: Acute (2) Femur fracture, left Status: Acute (3) Fracture, intertrochanteric, left femur Status: Acute CONDITION ON DISCHARGE: Stable CODE STATUS: Code Status: Full INTERMEDIATE: SNF STAY <30 DAYS: Yes POST DISCHARGE ORDERS: ACTIVITY ORDERS: Activity as tolerated, Avoid exertion WEIGHT BEARING STATUS: Full weight bearing WOUND/INCISION CARE: Ice to area for comfort, Change dressing, May get incision wet, Reinforce dressing PRN OTHER WOUND INSTRUCTIONS: If italia are present follow-up in 2 weeks for staple removal CHECKS AFTER DISCHARGE: CHECKS AFTER DISCHARGE: Check blood press - daily FOLLOW-UP: PHYSICIAN FOLLOW-UP: Please call [facility] office for follow up appt in 4 wee. phone # [phone] TREATMENT/EQUIPMENT ORDERS: ADAPTIVE EQUIPMENT NEEDED: None DISCHARGE MEDICATIONS: Home Meds Active Scripts Rivaroxaban (XARELTO) 10 Mg Tablet, 10 MG PO DAILYWSUP for after hip fracture, repair, #30 TAB Prov:NETTIE IVY MD 03/11/21 Lisinopril (LISINOPRIL) 5 Mg Tablet, 1 TAB PO DAILY, #30 TAB 5 Refills Prov:VENESSA GLASS MD 09/14/17 Reported Medications Levothyroxine Sodium (LEVOTHYROXINE SODIUM) 50 Mcg Tablet, 1 TAB PO DAILY, #90 TAB 3 Refills 07/18/16 Ibuprofen (IBUPROFEN) 400 Mg Tablet, 2 TAB PO PRN BID PRN for INFLAMMATION, TAB 07/18/16 Diphenoxylate Hcl/Atropine (LOMOTIL TABLET) 1 Each Tablet, 2.5 MG PO QIDPRN PRN for DIARRHEA, #20 TAB 07/18/16 Aspirin (ASPIRIN) 325 Mg Tablet, 325 MG PO 07/18/16 Prochlorperazine Maleate (Compazine) 10 Mg Tablet, 10 MG PO PRN Q6-8HRS PRN for NAUSEA, #14 10/21/15 Prochlorperazine Maleate (Compazine) 10 Mg Tablet, 10 MG PO PRN Q6-8HRS PRN for NAUSEA/VOMITING, #14 not given during this stay 1/20/16 Nitroglycerin (NITROSTAT) 0.4 Mg Tab.subl, 1 TAB SL UD PRN for CHEST PAIN, #100 TAB 3 Refills 10/15/15 Diphenoxylate Hcl/Atropine (LOMOTIL TABLET) 1 Each Tablet, 1 TAB PO PRN PRN for DIARRHEA, #30 TAB not given today 10-21-15 10/15/15 Paroxetine Hcl (PAROXETINE HCL) 40 Mg Tablet, 1 TAB PO DAILY, #30 TAB 5 Refills LAST DOSE GIVEN: DATE: 10-21-15 TIME: 9 am NEXT DOSE DUE: DATE: 10-22-15 TIME: 9 am 10/15/15 Metoprolol Tartrate (METOPROLOL TARTRATE) 25 Mg Tablet, 1 TAB PO BID, #180 TAB 1 Refill LAST DOSE GIVEN: DATE: 10-21-15 TIME: 9 am NEXT DOSE DUE: DATE: 10-21-15 TIME: 9 pm 10/15/15 Simvastatin (SIMVASTATIN) 20 Mg Tablet, 1 TAB PO HS, #30 TAB 5 Refills due tonight 10-21-15 at bedtime 10/15/15 Zolpidem Tartrate (ZOLPIDEM TARTRATE) 10 Mg Tablet, 1 TAB PO HS, #30 TAB 2 Refills 10/15/15 Discontinued Reported Medications Prasugrel Hcl (EFFIENT) 10 Mg Tablet, 10 MG PO DAILY LAST DOSE GIVEN: DATE: 10-21-15 TIME: 9 am NEXT DOSE DUE: DATE: 10-22-15 TIME: 9 am 10/15/15 Discontinued Scripts [Aspirin] 325 MG TABLET No Conflict Check, 325 MG PO DAILYWBKFT Prov:LEO LARKIN MD 03/23/15 NETTIE IVY MD Mar 11, 2021 11:38
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
--- NOTE | 2021-03-11 12:55 | NUR ---
PT DISCHARGED TO PP CALLED AND GAVE REPORT TO ROX. IV REMOVED. SURGICAL DRESSING CHANGED. PT BELONGINGS PACKED INCLUDING CLOTHING, CELL PHONE, TABLET AND COP EXAMINER. PT ASSISTED TO WHEELCHAIR AND WAS TAKEN BY TRANSPORTATION.
--- NOTE | 2021-03-11 13:05 | NUR ---
LEFT MESSAGE WITH DR. CRUMP ESCROW PROCESSOR REGARDING DR. IVY QUESTION TO STOP PLAVIX.
== END 2021-03-11 15:16 | DRG 480 ==
LOC: ER 16:35 → 4 NORTH 17:27 → 2 NORTH 03-07 23:05 → 4 NORTH 03-09 07:12
PROVIDERS: ADMIT Internal Medicine; ATTEND Internal Medicine
PROC: 0QS706Z Reposition Left Upper Femur with Intramedullary Internal Fixation Device, Open Approach (ICD-10-PCS; principal; 2021-03-06)
PROC: 30233N1 Transfusion of Nonautologous Red Blood Cells into Peripheral Vein, Percutaneous Approach (ICD-10-PCS; 2021-03-10)
DX: S72.142A Displaced intertrochanteric fracture of left femur, initial encounter for closed fracture (principal); N17.0 Acute kidney failure with tubular necrosis; D35.01 Benign neoplasm of right adrenal gland; D72.828 Other elevated white blood cell count; E03.9 Hypothyroidism, unspecified; E78.00 Pure hypercholesterolemia, unspecified; E78.5 Hyperlipidemia, unspecified; F17.200 Nicotine dependence, unspecified, uncomplicated; I10 Essential (primary) hypertension; I25.10 Atherosclerotic heart disease of native coronary artery without angina pectoris; W01.0XXA Fall on same level from slipping, tripping and stumbling without subsequent striking against object, initial encounter; Z90.710 Acquired absence of both cervix and uterus; Z95.5 Presence of coronary angioplasty implant and graft; F32.9 Major depressive disorder, single episode, unspecified; K21.9 Gastro-esophageal reflux disease without esophagitis; I25.2 Old myocardial infarction; Y93.89 Activity, other specified; Y92.89 Other specified places as the place of occurrence of the external cause; Y99.8 Other external cause status; Z20.822 Contact with and (suspected) exposure to COVID-19; Z79.899 Other long term (current) drug therapy
CPT/HCPCS: 36415; 36430; 70450; 71250; 72125; 73502; 74176; 76000; 80048; 80053; 82962; 83690; 83735; 84100; 84443; 84484; 85007; 85014; 85018; 85025; 85027; 85610; 86850; 86900; 86901; 86920; 87426; 93005; 96374; A4930; A6223; A6253; A6402; C1713; C1769; J0690; J1100; J1170; J2310; J2370; J2405; J2704; J3010; J7030; P9016; U0003; U0005; 97116-GP; 97530-GO; 97530-GP; 97535-GO; 99285-25; G0378